=== PATIENT | male | born 1955 | race Caucasian/White ===

== ENCOUNTER → 2021-11-01 13:23 | Outpatient (CLI) | payer MEDICARE, BC, SELFPAY ==
[2021-11-01 14:06] LABS: COVID19 -Nasal RAPID Negative (Negative)
== END ==
PROVIDERS: Family Provider Student in an Organized Health Care Education/Training Program; PCP Student in an Organized Health Care Education/Training Program; Visit Provider Family Medicine Sleep Medicine
DX: Z20.822 Contact with and (suspected) exposure to COVID-19 (principal)
CPT/HCPCS: 87635; C9803

== ENCOUNTER 2021-11-03 06:22 | Day surgery (SDC) | payer MEDICARE, BC, SELFPAY ==
[2021-11-01 11:40] VITALS: BMI 25.4
[2021-11-03] VITALS (13 sets, daily range): BP systolic 109–164; BP diastolic 49–82; PULSE 54–83; RESP 11–18; TEMP 35.5–37.2; O2SAT 92–97; BMI 25.4; BMI 23.6
[2021-11-03] MEDS: ANTIHEMOPHILIC FACTOR/VWF 600 UNIT VIAL 3750 UNIT IV (07:24)
--- NOTE | 2021-11-03 07:30 | PM.HP.1 ---
History of Present Illness History of Present Illness Date Patient Seen: 11/03/21 Time Patient Seen: 07:15 Chief complaint: LEFT ELBOW Narrative: 65-year-old gentleman with arthritic changes to the left elbow resulting in stiffness and pain with range of motion. 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) HLD (hyperlipidemia) Infectious viral hepatitis Surgical History H/O left wrist surgery History of ankle surgery History of ankle surgery History of arthroplasty of left knee (2015) History of arthroplasty of right knee (2014) History of cataract extraction History of surgery (09/2016) Hx of arthroscopy of left knee Hx of repair of right rotator cuff Family & Social History Social History: household members spouse Prior Living Arrangements House Safety & Behavioral: Feels Safe in Current Yes Environment Been Physically Hurt or No Threatened By a Person Suicidal Ideation Description None Suicide Plan Description No Plan Tobacco & Substance use: Smoking Status Former smoker alcohol intake current alcohol intake frequency other Substance Use Type does not use Meds Home Medications and Allergies Home Medications Medication Instructions Recorded Confirmed Type acetaminophen 500 mg tablet 500 mg PO Q4HP PRN #0 03/21/17 11/03/21 History (Tylenol Extra Strength) oxycodone 10 mg tablet 10 mg PO BEDTIME #0 03/28/17 11/03/21 History sildenafil (pulm.hypertension) 20 20 mg PO DAILY PRN #0 03/28/17 11/03/21 History mg tablet amlodipine 5 mg tablet (Norvasc) 5 mg PO DAILY 11/01/21 11/03/21 History atorvastatin 40 mg tablet 40 mg PO DAILY 11/01/21 11/03/21 History spironolactone 25 mg tablet 25 mg PO DAILY 11/01/21 11/03/21 History Allergies Allergy/AdvReac Type Severity Reaction Status Date / Time enalapril [ENALAPRIL] AdvReac Severe UVULA Verified 11/03/21 06:59 SWELLING, SORE THROAT lisinopril [LISINOPRIL] AdvReac Intermediate IRRITATION, Verified 11/03/21 06:59 POSSIBLE SWELLING OF UVULA (ADVERSE PER MD) NSAIDS (Non-Steroidal AdvReac Unknown CLOTTING Verified 11/03/21 06:59 Anti-Inflamma FACTOR [NSAIDS (NON-STEROIDAL DISORDER ANTI-INFLAMMA] ALL/ANY BLOOD THINNERS Allergy Severe PT HAS VON Uncoded 11/03/21 06:59 [facility] OPIOIDS AdvReac Intermediate NAUSEA Uncoded 11/03/21 06:59 Exam Vital Signs (past 8 hours): - 11/03/21 07:02 Temperature 97.2 F L Pulse Rate 54 L Respiratory Rate 15 Blood Pressure 143/77 H Pulse Oximetry 97 Oxygen Delivery Method Room Air Narrative Exam Narrative: Patient with decreased range of motion to the left elbow. Patient has 95? of elbow flexion but is lacking the last 35? of full extension. Relatively normal supination and pronation. No sign of any elbow instability. Pain and crepitus with range of motion. Radial, ulnar, and medial nerve intact both motor and sensory function. Assessment & Plan Assessment & Plan narrative: 65-year-old gentleman with hemorrhagic arthritic changes involve left elbow. Due to these issues, patient is interested in an arthroscopic procedure to address the arthritis remove any loose bodies and see if we can improve his overall range of motion. The risk, benefits, alternatives, possible complications, operative course, and postop outcomes were discussed. Complications including but not limiting to bleeding, infection, fracture, nerve injury, continued pain postoperatively or instability postoperatively were discussed in detail. Medical complications including but not limited to deep venous thrombosis event, anesthesia complications with excessive bleeding, vascular events or cardiac events and other possible complications were discussed in detail. Need for postoperative rehabilitation and anticipated hospital stay and clinical course were discussed in detail. Patient acknowledges understanding and elects to proceed with surgery. Time Spent With Patient Critical Care time: I spent a total of [] minutes of critical care time on this patient's care today; this time is exclusive of procedural time.
--- NOTE | 2021-11-03 07:33 | PM.PREOP ---
Pre-operative Note COVID-19 COVID-19 status: Negative Interval Note History & Physical reviewed/Exam performed by Physician: Yes Changes to H&P: No
[2021-11-03] MEDS: LACTATED RINGERS 1,000 ML 84 ML IV (07:49)
[2021-11-03] MEDS: CEFAZOLIN 2 GM/20 ML SYRINGE IV ×2 (08:00→15:11)
--- NOTE | 2021-11-03 08:31 | SUR.OPER ---
Lateral on a dwan bag, head on pillow, gel axillary roll in place, bottom leg bent with gel pad under knee to foot, upper leg straight and supported with pillows. Upper arm supported by arm blood. Safety belt at hip, tape over blanket lower legs.
[2021-11-03] MEDS: BUPIVACAINE 0.5% (PF) 30 ML, EPINEPHrine 0.15 MG INJ (08:39)
[2021-11-03] MEDS: fentaNYL 100 MCG/2 ML INJ IV ×2 (09:30→09:36)
--- NOTE | 2021-11-03 09:35 | P.OP_ITS ---
Operative Date/Time/Diagnoses Date of procedure: 11/03/21 Time of procedure: 08:00 Pre-op diagnosis: Left elbow hemorrhagic arthritis Post-op diagnosis: same Procedure & Clinicians Procedure: Left elbow arthroscopic extensive debridement with capsular release as well as removal of loose bodies. 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 Surgeon: Kian Pickard Level Vial Sealer: Roxy Moise Anesthesia Type: General Operative Notes Findings: Significant arthritic changes to the elbow joint both anterior and posterior. Areas of full-thickness cartilage loss. Quite a bit of synovitis both anterior and posterior. Signs of hemorrhagic arthritic changes throughout the elbow. Multiple loose bodies both anterior and posterior. Closure Type: primary Estimated Blood Loss (mL): 5 Procedure in detail: On date of service, patient is met in the holding area where his operative site was signed witnessed by the OR staff. Surgeries once again discussed with the patient in remaining questions or concerns he had were answered fully. Patient was taken back to the operating theater placed on the operating table in a supine position. Great care was taken to ensure that all bony prominences were appropriately padded. Well-padded tourniquet was placed up along the upper extremity. Time-out was performed verifying patient's name procedure and operative site. Patient was then placed in the lateral position and axillary roll was placed. The left arm was prepped and draped in the normal sterile fashion. Esmarch was used to exsanguinate the limb and the tourniquet was turned up to 250 mmHg. Patient's bony anatomy was marked out. Marking pen was used to dry out to the olecranon the radial head the medial lateral epicondyle in the course of the ulnar nerve. Anterior medial and lateral portal sites were established as well as posterior portal sites. Saline was injected into the elbow joint distending the joint. We were able to actually aspirate quite a bit of bloody type fluid from the joint due to his bleeding disorder. Fifteen blade was used to incise through skin only for the medial lateral anterior portals. A blunt hemostat was used to dissect down and enter into the elbow joint. Camera was placed laterally a shaver was placed medially. At this point we were able to do an extensive debridement removing the arthritic changes and loose bodies as well as the significant amount of synovitis to the anterior aspect of the shoulder. Th is allowed us to improve our overall visualization given us good visualization of the coracoid process the radial head as well as the distal humerus. Using a shaver an extensive capsular release was performed allowing us to improve the overall range of motion. Camera was then placed medially shaver was placed laterally and this was continued again to the anterior aspect of the elbow. Once we felt we had it extensively debrided the elbow anteriorly we turned our attention posteriorly. A direct posterior portal as well as a posterior lateral portal were established in the same fashion. Fifteen blade to incise the skin only blunt hemostat to enter in to the posterior aspect of the elbow joint. Camera was placed posterior laterally and the shaver was placed directly posteriorly allowing us to debride and remove any degenerative tissue and synovitis in the olecranon fossa. Were also able to clean out the lateral gutter. Shaver was used to extensively debride the posterior aspect of the elbow as well as remove any loose bodies. Once we felt like we had adequate debridement the elbow was taken through range of motion. Preoperatively, patient had about 90-95 degrees of flexion was lacking the last 35-40 degrees of extension. Postoperatively, patient had full flexion of the elbow and was lacking the last 5? of extension. We were able to bring him back to almost full range of motion of the elbow without any signs of any stiffness or contractures. No sign of any mechanical symptoms or locking or catching. Patient also had full supination and pronation. Portal sites were closed with nylon. Patient's elbow was cleaned, dried, and dressed. Patient was extubated and taken to the PACU in stable condition. Patient was seen in recovery after surgery and a neurovascular check was performed. Patient had normal function of his radial ulnar and median nerve. Full range of motion of his wrist and fingers. No sign of any sensory changes distally. Patient also had palpable radial pulse and brisk cap refill to the fingers. Complications: none Post-operative Condition: stable Disposition: observation Plan for aftercare: Patient is being admitted in order for him to receive his Humate-P medication to treat his von Willebrand's disease.
[2021-11-03] MEDS: OXYCODONE/ACETAMINOPHEN 5/325 TABLET 1 TAB PO (09:38)
[2021-11-03] MEDS: ONDANSETRON 4 MG/2 ML INJ IV (09:42)
[2021-11-03] MEDS: HYDROMORPHONE 2 MG INJ IV (10:07)
[2021-11-03] MEDS: HYDROCODONE/ACET 5/325 TABLET 2 TAB PO ×3 (11:13→18:14)
[2021-11-03] MEDS: LACTATED RINGERS 1,000 ML 125 ML IV (11:32)
--- NOTE | 2021-11-03 12:50 | PT.IIE ---
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 no steps to enter 12 steps R rail to 2nd level bedroom Home Environment Standard Height Toilet,High Toilet,Walk in Shower Home Equipment Hand Held Shower Employment Status Retired M2 PT-IP Current Condition Start: 11/03/21 13:41 Freq: NEEDED Status: Active Protocol: Document 11/03/21 12:50 AB (Rec: 11/03/21 14:02 AB [email or web address]) Physical Therapy Current Condition Current Condition Evaluation Date 11/03/21 Treatment Diagnosis s/p L elbow arthroscopic debridement w/ capsular release; diff in walking Onset Date 11/03/21 M3 PT-IP Subjective Start: 11/03/21 13:41 Freq: NEEDED Status: Active Protocol: Document 11/03/21 12:50 AB (Rec: 11/03/21 14:02 AB [email or web address]) Subjective Physical Therapy Visit Type Type Initial Evaluation Visit Start Time 12:50 Visit Stop Time 13:30 Total Visit Minutes 40 Number of STUDENT SERVICES REP Visits 0 Physical Therapy Visit Comments Patient Comments agreeable to do PT Therapy Pain Assessment Pain When Pain Assessed At Rest Pain Present Pain Present Pain Reported Location left elbow Intensity 3 Scale Used Numeric (0 - 10) M4 PT-IP Mobility and Gait Start: 11/03/21 13:41 Freq: NEEDED Status: Active Protocol: Document 11/03/21 12:50 AB (Rec: 11/03/21 14:02 AB [email or web address]) PT-Bed Mobility Assessment Supine to Sit Supine to Sit Independent Sit to Supine Sit to Supine Independent PT-Transfer Assessment Sit to and From Stand Sit to and from Stand Independent Equipment Transfer Assistive Device None,Gait Belt Orthotic/Prosthetic Devices or Brace: Yes Comments Mobility Comments pt educated on elbow precautions and ROM exercises and bed positioning for edema control and icing. completed bed mobility and sit to stand independent. able to ambulate without AD independent ~ 225 ft and completed up/down stairs using R rail ascending mod I. pt presents with antalgic gait due to R knee flexion contracture and tiptoes on his R toes during standing and ambulation. pt stated that he had TKA back in 2017 and had PT and stretching but was not able to achieve normal range. pt able to manage despite limitation and with no LOB during ambulation. pt ambulated back to his room and went back to bed. positioned LUE. pt understood positioning. call light and table placed within reach. Gait Assessment Gait Gait Assistance Required: Independent Distance (Feet) 225 Able to Maintain Weight Bearing Status Yes During Gait Assistive Devices Orthotic/Prosthetic Devices or Brace: Yes Gait Deviations General Gait Pattern Antalgic Factors Limiting Gait Function Factors Limiting Gait Function Decreased Activity Tolerance, Decreased Sensation,Decreased Strength,Limited Range of Motion,Pain,Poor Balance Stair Climbing Assessment Evaluation Level of Assist On Stairs Independent Devices Stair Climbing Assistive Devices Right Railing Technique/Endurance Stair Climbing Direction Ascend and Descend Stair Climbing Technique Step Over Step Number of Steps Climbed 3 Query Text: Stair Climbing Set # Repetitions (reps) 3 PT-Balance Assessment Sitting Balance and Reactions Static Sitting Balance Ability Normal Dynamic Sitting Balance Ability Normal Standing Balance and Reactions Static Standing Balance Ability Normal Dynamic Standing Balance Ability Normal Device Used without AD M5 PT-IP Objective Assessments Start: 11/03/21 13:41 Freq: NEEDED Status: Active Protocol: Document 11/03/21 12:50 AB (Rec: 11/03/21 14:02 AB [email or web address]) Orientation Orientation/Cognition Level of Alertness Alert Orientation Name,Age,Birthday,Month,Date, Year,Day of Week,Place, Situation Language Function Ability No Deficits Noted Safety Awareness Understands Safety Issues Memory Description No Deficits Noted Gross Range of Motion Upper Extremity ROM Impairments L elbow in ~ 30 deg flexion with tightness in extension but also has kelsea wrap and dressing on affecting movement and range Lower Extremity ROM Impairments R knee flexion: PROM 90 deg extension with ~ 30 less to 0 Strength Upper Extremity Strength Hand decrease tobacco conditioner strength due to numbness Lower Extremity Strength Assessment Within Functional Limits Comments Strength Comments pt still has numbness on L hand affecting movement/ strength Sensation Assessment Sensation Gross Sensation Left UE Impaired Sensation Description Numbness Muscle Tone Muscle Tone WNL Yes M6 PT-IP Treatment Start: 11/03/21 13:41 Freq: NEEDED Status: Active Protocol: Document 11/03/21 12:50 AB (Rec: 11/03/21 14:02 AB [id number]) Physical Therapy Treatment Education Education Provided Precautions,Weight Bearing Status,Safety M7 PT-IP Assessment and Plan Start: 11/03/21 13:41 Freq: NEEDED Status: Active Protocol: Document 11/03/21 12:50 AB (Rec: 11/03/21 14:02 AB [email or web address]) PT Summary Assessment and Plan Potential Rehabilitation Potential Good Status of Condition at Evaluation Stable Summary Impairments Pain,ROM,Strength,Balance, Coordination,Sensation,Tone, Cognition,Bed Mobility, Transfers,Gait,Activity Tolerance Assessment Summary pt is independent with mobility without AD. educated on elbow precautions, ROM, icing and weight bearing. pt understood. no further PT intervention indicated at this time. pt plans to go home and spouse will assist pt at home. Frequency of Treatment Frequency Of Treatment Discharge Treatment Plan Physical Therapy Treatment Plan Therapeutic Exercise,Post Op Education,Discharge Planning Recommendations To Nursing Amount of Assist Needed Standby Assistance Discharge Recommendations PT Discharge Recommendations Home,Outpatient PT Transportation Needs at Discharge Private Vehicle
--- NOTE | 2021-11-03 16:00 | DI.RAD.S_ITS ---
PROCEDURE: XR CHEST FOR PICC 1V INDICATIONS: verify picc placement COMPARISON: [facility], , CHEST FOR PICC PLACEMENT, 04/05/2017, 15:18. FINDINGS: Right upper extremity PICC terminates in the distal SVC just above the level of the cavoatrial junction. IMPRESSION: Right upper extremity PICC terminates in the distal SVC just above the level of the cavoatrial junction. Dictated by: Alex Howell M.D. on 11/03/2021 at 16:33 Approved by: Alex Howell M.D. on 11/03/2021 at 16:33
[2021-11-03] MEDS: ANTIHEMOPHILIC FACTOR/VWF 600 UNIT VIAL 2650 UNIT IV (19:54)
== END 2021-11-03 20:55 | disposition home or self-care (01) ==
LOC: AC 18:02 → OR 11-04 09:14
PROVIDERS: Family Provider Student in an Organized Health Care Education/Training Program; PCP Student in an Organized Health Care Education/Training Program; Referring Provider Orthopaedic Surgery; Visit Provider Orthopaedic Surgery
PROC: (CPT 29830; principal; 2021-11-03 07:45)
DX: M19.022 Primary osteoarthritis, left elbow (principal); M36.2 Hemophilic arthropathy; M65.822 Other synovitis and tenosynovitis, left upper arm; Z98.890 Other specified postprocedural states; M24.022 Loose body in left elbow
CPT/HCPCS: 29838; 29834; 97161; 97530; J0171; J0690; J1100; J1170; J2250; J2405; J2704; J3010; J7187

== ENCOUNTER 2023-09-27 09:28 | Day surgery (SDC) | payer MEDICARE, SELFPAY ==
[2021-11-03 11:06] VITALS: BMI 23.6
[2023-09-13 12:31] VITALS: BMI 24.3
[2023-09-27] VITALS (14 sets, daily range): BP systolic 121–162; BP diastolic 65–92; PULSE 67–96; RESP 11–18; TEMP 36.2–37.3; O2SAT 92–97; BMI 24.3
--- NOTE | 2023-09-27 10:07 | PM.PREOP ---
Pre-operative Note Interval Note History & Physical reviewed/Exam performed by Physician: Yes Changes to H&P: No
[2023-09-27] MEDS: ANTIHEMOPHILIC FACTOR/VWF 600 UNIT VIAL 3750 UNIT IV (10:19)
[2023-09-27 10:34] LABS: Add Manual Diff / Slide Review NO; Basophils Absolute Auto 0 /uL (0-100); Basophils Percent Auto 0.7 % (0-2); Eosinophils Absolute Auto 100 /uL (0-450); Eosinophils Percent Auto 1.4 % (2-4); Hematocrit 40.8 % (41-53); Hemoglobin 13.7 g/dL (13.5-17.5); Lymphocytes Absolute Auto 1400 /uL (1100-4500); Lymphocytes Percent Auto 27.4 % (25-40); Mean Corpuscular HGB Conc 33.5 % (30-36); Mean Corpuscular Hemoglobin 28.4 PG (26-34); Mean Corpuscular Volume 84.7 fL (80-100); Monocytes Absolute Auto 600 /uL (0-900); Monocytes Percent Auto 11.1 % (3-14); Neutrophils Absolute Auto 3100 /uL (1500-7000); Neutrophils Percent Auto 59.4 % (50-75); Platelet Count 161 X10^3/uL (150-400); Red Blood Cell Count 4.82 X10^6/uL (4.5-5.9); Red Cell Distribution Width 14.2 % (11.6-14.8); White Blood Cell Count 5.3 X10^3/uL (4.5-11.0)
[2023-09-27] MEDS: SODIUM CHLORIDE 0.9% 1,000 ML 100 ML IV (10:35)
[2023-09-27] MEDS: CEFAZOLIN 2 GM/100 ML PREMIX 100 ML IV ×2 (11:15→18:11)
--- NOTE | 2023-09-27 11:30 | SUR.OPER ---
Lateral on padded OR bed with dawn bag positioner, head on pillow, gel axillary roll in place, bottom leg bent with gel pad under knee to foot, upper leg straight and supported with pillows. Operative arm secured in shoulder positioning suspension device. non-operative arm secured on padded arm board. Safety belt at hip, tape over blanket securing lower legs.
[2023-09-27] MEDS: BUPIVACAINE 0.5% (PF) 30 ML, EPINEPHrine 0.15 MG INJ (11:38)
--- NOTE | 2023-09-27 12:31 | P.OP_ITS ---
Operative Date/Time/Diagnoses Date of procedure: 09/27/23 Time of procedure: 11:30 Pre-op diagnosis: Left elbow hemophilic arthritis Post-op diagnosis: same Procedure & Clinicians Procedure: Left elbow arthroscopic extensive debridement with capsular release and loose body removal, extensive synovectomy Same procedure as scheduled: Yes Indications: Hemophilic arthritis with loose bodies in the left elbow Surgeon: Kian Pickard Clarifying Plant Operator: Mars Carmen Anesthesia Type: General Operative Notes Findings: Significant arthritic changes throughout the elbow in both the anterior and posterior aspects. Areas of full-thickness cartilage loss. Multiple loose bodies in the anterior and posterior aspect of the elbow. Significant synovitis. Closure Type: primary Estimated Blood Loss (mL): 5 Tourniquet time (min): 60 Procedure in detail: On date of service, patient was met in the holding area where his operative site was signed and witnessed by the OR staff. Surgeries once again discussed with the patient in remaining questions or concerns he had were answered fully. Patient was taken back to the operating theater and placed on the operating table in a supine position. Great care was taken to ensure that all bony prominences were appropriately padded. Patient was then placed in the lateral position using a beanbag. Axillary roll was placed. The right arm was placed into the right arm blood with the elbow bent at 90?. Time-out was previously performed verifying patient's name, procedure, and operative site. Right arm was prepped and draped in the normal sterile fashion. Esmarch was used to exsanguinate the limb and the tourniquet was turned up to 250 mm of mercury. Patient's bony anatomy and portal sites were drawn out previously. Course of the ulnar nerve was also drawn out so it was always visible throughout the entire case. Fifteen blade was used to incise through skin only for the anterior ulnar and radial portal. Hemostat was used to bluntly dissect down into the elbow joint. Camera was placed radially and the shaver was placed ulnarly and extensive debridement of mainly the radial aspect of the elbow joint was performed. Patient had a few loose bodies some of the rather large. So grasper was used to remove some of the larger loose bodies. There was also quite a bit of synovitis in the anterior aspect of the elbow joint. We also debrided some of the thickened capsular tissue to try to help with overall range of motion. Great care was taken to ensure just the capsular tissue was removed and there was no damage to the surrounding structures. Patient as mentioned above had significant arthritic changes due to his hemophilic arthritis as well as quite a bit of synovitis. Next the camera and shaver was switched placed in the camera ulnarly and the shaver radially allowing us to debride the other anterior half of the elbow joint. Large loose body coming off the distal humerus which was removed using a grasper. And continues debridement was performed of the surrounding capsular tissue. Once we felt that we had removed all loose bodies cleaned up the synovitis and did a good capsular release we turned our attention posteriorly. Two incisions were made a posterior incision and a posterior radial incision. Shaver and camera replaced into these portals and a debridement of the olecranon fossa was performed. Patient had a very large loose body in the radial gutter which was broken up into multiple pieces and then removed. No loose bodies in the ulnar gutter. Shaver was used to debride out all the synovitis and scarring around the olecranon fossa to improve overall range of motion. Elbow was taken through range of motion and there was improvement in extension as well as flexion.. Patient had full supination and pronation as well. Portal sites were closed with nylon. Elbow was cleaned, dried, and dressed. Marcaine was injected into the elbow joint as well as around the portal sites. Patient was extubated and taken to the PACU in stable condition. Postoperatively patient will be in a sling just for comfort. There is no restrictions to range of motion. Will limit lifting for about 2 weeks. Complications: none Post-operative Condition: stable Disposition: Acute Care Plan for aftercare: Patient will be held overnight so he can get his 2nd Humate P infusion. Patient can be discharged home after that.
[2023-09-27] MEDS: OXYCODONE IR 5 MG TABLET PO (13:13)
[2023-09-27] MEDS: hydrOXYzine 50 MG/ML INJ 25 MG IM (13:17)
--- NOTE | 2023-09-27 13:31 | SUR.PHASEI ---
Report called to Lynne Abraham.
[2023-09-27] MEDS: OXYCODONE IR 10 MG TABLET PO ×2 (14:06→23:48)
[2023-09-27] MEDS: LACTATED RINGERS 1,000 ML 100 ML IV (14:46)
[2023-09-27] MEDS: DOCUSATE 100 MG CAPSULE PO (21:15)
[2023-09-27] MEDS: ANTIHEMOPHILIC FACTOR/VWF 600 UNIT VIAL 2650 UNIT IV (21:15)
[2023-09-27] MEDS: SENNOSIDES 8.6 MG TABLET 17.2 MG PO (21:15)
[2023-09-28 00:03] VITALS: BP 130/69; PULSE 77; RESP 17; TEMP 36.4; O2SAT 96
[2023-09-28] MEDS: CEFAZOLIN 2 GM/100 ML PREMIX 100 ML IV (03:36)
[2023-09-28 04:56] VITALS: BP 147/83; PULSE 74; RESP 16; TEMP 36.3; O2SAT 95
[2023-09-28 05:01] LABS: Hematocrit 38.6 % (41-53); Hemoglobin 13.1 g/dL (13.5-17.5); Mean Corpuscular Hemoglobin 28.8 PG (26-34); Mean Corpuscular Volume 84.7 fL (80-100); Platelet Count 176 X10^3/uL (150-400); Red Blood Cell Count 4.56 X10^6/uL (4.5-5.9); Red Cell Distribution Width 14.2 % (11.6-14.8)
--- NOTE | 2023-09-28 06:37 | PM.DS.1 ---
History of Present Illness History of Present Illness Date Patient Seen: 09/28/23 Time Patient Seen: 06:37 Chief complaint: Left Elbow 09/26 Narrative: Operative Date/Time/Diagnoses Date of procedure: 09/27/23 Time of procedure: 11:30 Pre-op diagnosis: Left elbow hemophilic arthritis Post-op diagnosis: same Procedure & Clinicians Procedure: Left elbow arthroscopic extensive debridement with capsular release and loose body removal, extensive synovectomy Same procedure as scheduled: Yes Indications: Hemophilic arthritis with loose bodies in the left elbow Surgeon: Kian Pickard Cone Classifier Tender: Mars Carmen Anesthesia Type: General Operative Notes Findings: Significant arthritic changes throughout the elbow in both the anterior and posterior aspects. Areas of full-thickness cartilage loss. Multiple loose bodies in the anterior and posterior aspect of the elbow. Significant synovitis. Closure Type: primary Estimated Blood Loss (mL): 5 Tourniquet time (min): 60 Discharge Providers Provider Discharge Date: 09/28/23 Primary care physician: Rosita Lino DO Consults: 09/27/23 12:26 Consult to Discharge Planning Routine Comment: Consult to Physical Therapy Evaluate & Treat Comment: Physician Instructions: Evaluate and Treat Discharge provider: Roxy Moise PA-C Summary Hospital Course Discharge Diagnosis: Left elbow hemophilic arthritis, s/p Left elbow arthroscopic extensive debridement with capsular release and loose body removal, extensive synovectomy von Willebrand disease type 3 Hospital Course: Thad's hospital course was remarkable only for the need for perioperative dosing of Humate P d/t VWD. On the morning of POD# 1, he was feeling well and wanted to go home, but his PICC line wasn't placed yet. Trough labs for WACBD were requested by his hematologis; unsure if these had been drawn yet. Pt unsure of post-op Humate dosing schedule, but does have these instructions at home. Also unsure of activity restrictions. Otherwise, doing well; eating and voiding without difficulty, pain well-controlled. Exam Vital Signs (past 8 hours): - 09/28/23 00:03 09/28/23 04:56 Temperature 97.6 F 97.3 F L Pulse Rate 77 74 Respiratory Rate 17 16 Blood Pressure 130/69 147/83 H Pulse Oximetry 96 95 Oxygen Delivery Method Room Air Oxygen Flow Rate 0 Narrative Exam Narrative: 5/5 java grails developer strength, biceps, triceps. Soft dressing CDI. Sensation to touch intact throughout LUE. Objective Labs 09/28/23 04:25 Labs: Laboratory Results - last 24 hr 09/27/23 09/28/23 10:10 04:25 WBC 5.3 9.0 D RBC 4.82 4.56 Hgb 13.7 13.1 L Hct 40.8 L 38.6 L MCV 84.7 84.7 MCH 28.4 28.8 MCHC 33.5 34.0 RDW 14.2 14.2 Plt Count 161 176 Neut % (Auto) 59.4 Lymph % (Auto) 27.4 Orange % (Auto) 11.1 Eos % (Auto) 1.4 L Baso % (Auto) 0.7 Neut # (Auto) 3100 Lymph # (Auto) 1400 Orange # (Auto) 600 Eos # (Auto) 100 Baso # (Auto) 0 Blood Type A Positive Antibody Screen Negative [facility] Medical History (Updated 09/13/23 @ 13:15 by Gregoria Molina RN) History of COVID-19 (2022) Anesthesia complication Infectious viral hepatitis HLD (hyperlipidemia) 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) Arthritis Headache, migraine Surgical History (Updated 09/13/23 @ 12:37 by Gregoria Molina RN) Hx of elbow surgery (11/03/21) History of surgery (09/2016) History of arthroplasty of left knee (2015) History of arthroplasty of right knee (2014) History of cataract extraction History of ankle surgery H/O left wrist surgery Hx of repair of right rotator cuff Hx of arthroscopy of left knee History of ankle surgery Social History household members: spouse Smoking Status: Former smoker alcohol intake: current Discharge Assessment & Plan Assessment and Plan Assessment: 1) Left elbow arthroscopic extensive debridement with capsular release and loose body removal, extensive synovectomy 2) VWD Plan of Treatment: 1) Limit lifting w/ LUE to 5 pounds for the next 2 weeks. No restrictions to ROM. May shower. 2) PICC line for Humate P infusion. STAT labs per WACBD if these have not been drawn yet. Next Humate dose is 2650 @ 1000; it appears as though this has been ordered. 3) D/C home after PICC and infusion; f/u in office in 2 weeks as scheduled. Discharge Plan Discharge Plan Patient Disposition: Home Provider Discharge Comment: CONTINUE HUMATE-P INFUSIONS PER DR TERAN'S INSTRUCTIONS Discharge orders & Medications Discharge Orders: Discharge (Order); Ordered 09/28/23 Ordered By: Roxy Moise Prescriptions: New oxycodone 5 mg Tablet 5 mg PO Q6HR PRN (Reason: pain (scale score 7-10)) Qty: 14 0RF Continued acetaminophen [Tylenol Extra Strength] 500 MG tablet 500 mg PO Q4HP PRN (Reason: Pain) Qty: 0 oxycodone 10 MG tablet 10 mg PO BEDTIME PRN (Reason: Pain) Qty: 0 sildenafil (pulm.hypertension) 20 MG tablet 20 mg PO DAILY PRN (Reason: Sexual Activity) Qty: 0 atorvastatin 40 mg Tablet 40 mg PO DAILY spironolactone 25 mg Tablet 25 mg PO DAILY amlodipine [Norvasc] 5 MG tablet 5 mg PO DAILY celecoxib [Celebrex] 200 mg Capsule 200 mg PO DAILY PRN (Reason: Pain) Follow up/Referrals: Kian Pickard MD [Physician] - 10/09/23 1:00 pm (Follow up at [facility] in [place] Rosita Lino DO [Primary Care Provider] - Diet/Activity/Treatments Diet: Diet as Tolerated Activity: No lifting/pushing/pulling more than 5# with left hand. No restrictions to range of motion at elbow. Cold/Heat Therapy: Ice to elbow as needed for pain. Skin/Wound/Dressing Care Report to your healthcare provider any signs of infection, such as:: chills, fever, night sweats, unusual drainage and unusual redness Dressing: May unwrap dressing and shower. Pat incisions dry afterwards. No bathing or otherwise soaking incisions. Do not apply any creams, lotions, or ointments to incisions. May keep incisions covered with clean, dry gauze or Band-aids. Visit Report/Discharge Packet Instructions: DI for Arthroscopy, DI for Prescription Opioid Use Stand Alone Forms: Patient Portal/API, Surgery Discharge Discharge Data Primary Care Provider: Rosita Lino Attending Provider: Kian Pickard Quality VTE Deep Vein Thrombosis/Pulmonary Embolism Present on Admission: No
[2023-09-28 07:00] VITALS: BP 133/60; PULSE 69; RESP 16; TEMP 36.2; O2SAT 98
[2023-09-28] MEDS: DOCUSATE 100 MG CAPSULE PO (08:21)
[2023-09-28] MEDS: ATORVASTATIN 20 MG TABLET 40 MG PO (08:21)
[2023-09-28] MEDS: AMLODIPINE 5 MG TABLET PO (08:21)
[2023-09-28] MEDS: SPIRONOLACTONE 25 MG TABLET PO (08:21)
[2023-09-28] MEDS: polyethylene glycoL 3350 17 GM POWD.PACK PO (08:21)
--- NOTE | 2023-09-28 08:31 | CM.DANOTE ---
Initial DCP Assessment Visit Note Reviewed EMR and team rounds for pt's medical status and updates. Met with pt at bedside to introduce self and role. Pt was found to be awake/oriented and sitting up in the recliner. He lives independently with his spouse in their own home in [place], spouse will transport him once he's had his PICC placed and is medically cleared for d/c. Payor: Anthony Colón Attending: Dr. Pickard Pt is a 67 year-old M post-op day 1 following his L-elbow arthroscopic extensive debridement w/capsular release and loose body removal surgery. This was his second debridement surgery following his original L-elbow arthroplasty done in 2021. He has a lengthy hx of L-hemophilic arthritis, conservative measures have not provided lasting relief. Pt will receive a PICC line this morning in order to d/c home with postoperative Humate P infusions for the next 2-weeks. He understands post-op f/u instructions and has a f/u appt. scheduled in 2-weeks with Ortho. DCP will continue to monitor, however he denies any d/c needs at this time. Discharge Planning/Care Management CM Discharge Assessment Start: 09/28/23 08:27 Freq: Status: Active Protocol: Document 09/28/23 08:27 DPL (Rec: 09/28/23 08:30 DPL [id number]) Discharge Planning Assessment Assigned Data Review Specialist SURESH Coats Advance Directives? Yes Advance Directives on File Yes History Provided By Patient,Medical Record Has Patient been admitted in last 30 No days? Prior Living Arrangements House Household Members spouse Type of transporation used prior to Drives own vehicle admit Independent with ADL's Yes Is patient alert and oriented? Yes Caregiver for Another No Comment N/A Comment No identified home d/c needs at this time. Barriers to Discharge No Discharge Plan Home Transportation Arrangement Spouse Referrals Initiated None needed Whiteboard Updated in Patient Room with Yes name and ext. # of Data Review Specialist Review Status In Process Please Provide Date Initial DC 09/28/23 Assessment Was Performed Pre-Anesthesia Assessment Start: 09/13/23 12:31 Freq: Status: Active Protocol: Document 09/13/23 12:31 CAB (Rec: 09/13/23 12:43 CAB [id number]) Pre-Anesthesia Assessment PAC Comment Pt will require Humate P infusion within 1 hour pre-op. Please call pharmacy and they will bring over. Pt will require second dose 12 hours later. Please see [facility] fax in surgery folder Preferred Name Yariel Patient Information Reviewed Via Phone Assessment Assessment Completed With Patient Primary Care Provider Rosita Lino Seen Specialist in Last 12 Months Yes Specialist Seen Rubber Stamp Assembler,Orthopedist,Other Comment [facility]/Dr. Antonio Clemente [phone] Primary Language Angolan Preferred Language Angolan Aviation Project Manager Required No Height 175.26 cm Weight 74.843 kg Body Mass Index (BMI) 24.3 Hearing Ability Normal Visual Assist Glasses Dentition Type Teeth, Natural Present Barriers to Learning None Hx Anesthesia Reactions Yes: PONV Hx Family Anesthesia Reaction No Hx Malignant Hyperthermia No Hx Blood Transfusions Yes: Childhood r/t bleeding disorder Hx Blood Transfusion Reaction Yes: x 1-allergic reaction of hives, throat closing, treated w/benadryl Anesthesia Review Requested Yes: Surgeon requested re: Von Willebrands Creative Specialist No alcohol intake current alcohol intake frequency holidays/special occasions only Smoking Status Former smoker Tobacco type cigarettes how long ago did patient quit smoking many! Substance Use Type does not use Pain Present Pain Reported Musculoskeletal Symptoms Joint Pain,Limited Range of Motion History of Falling (Recent or History of No ) Patient is completely paralyzed or No completely immobile Mental Status Oriented to own ability Is patient on oxygen? No Does patient have HARP/SOB No Hx Sleep Apnea No Currently Taking a Beta Jacqui No Can You Climb a Flight of Stairs Without Yes SOB Hx Chest Pain No Hx SOB No Hx Syncope or Dizziness No Anti-Coagulant Therapy No Has a Rubber Stamp Assembler Yes: Last visit 07/05/[address] Mckinnon Cardiac Testing No Hx Pacemaker/ICD No Pacemaker Rep Required? No Comment Cardiac records scanned and in surgery folder Diet Type At Home Regular,Vegetarian Dysphagia No Gastrointestinal Symptoms None Urinary Catheter Present No Hx Urinary Self Catheterization No Diabetes No Hx Drug Resistant Organism No Presence of External or Internal Medical Yes: Rt eye IOL, lt wrist Devices fusion, bilat knee/ankle Received a COVID vaccine? Yes Received all doses? Yes Marital Status Lives With spouse Current Living Arrangements House Support System Spouse Does the Patient Have Assistance After Yes Surgery Patient Discharge Plan Description Return Home Feels Safe in Current Environment Yes Been Physically Hurt or Threatened By a No Person in Current Environment Do you have thoughts of harming yourself None or others? Are you currently considering suicide? No Do you have a plan to hurt yourself or No Plan others? Do You Have Any Spiritual Beliefs That No May Affect Your HC Choices? Do You Have Any Cultural Practices That No May Affect Your HC Choices? Who Can We Speak to About Patient's Care Family, friends Identifying Code for Release of Patient Declines to issue Information Health Care Proxy/Next of Kin Leydi () Health Care Proxy Emergency Contact Name Leydi () Emergency Contact Advance Directives? Yes Advance Directives on File Yes Power of Breadman Yes Power of Breadman Name Leydi () Power of Breadman PAC Instructions Durable medical equipment, Medications to take/avoid,No ETOH/petroleum product on skin DOS,NPO,Post-op transportation,Sensory aids, Sturdy shoes/comfortable clothes,Do not bring valuables and remove jewelry
--- NOTE | 2023-09-28 09:00 | DI.RAD.S_ITS ---
PROCEDURE: XR CHEST 1V INDICATIONS: PICC placement TECHNIQUE: One view of the chest was acquired. COMPARISON: [facility], , XR CHEST FOR PICC 1V, 11/03/2021, 16:01. FINDINGS: Surgical changes and devices: Right sided PICC with the catheter tip at the cavoatrial junction. Lungs and pleura: Lungs are clear. No pleural effusions or pneumothorax. Mediastinum: Mediastinal contours appear unchanged. Heart size is within normal limits. Bones and chest wall: No suspicious bony lesions. Overlying soft tissues appear unremarkable. IMPRESSION: Right sided PICC with the catheter tip at the cavoatrial junction. Dictated by: Darrius Murcia M.D. on 09/28/2023 at 10:03 Approved by: Darrius Murcia M.D. on 09/28/2023 at 10:05
--- NOTE | 2023-09-28 09:40 | PT.IIE ---
Current Diagnoses Primary osteoarthritis, left elbow (09/27/23) Joint disorder, unspecified (09/27/23) Hemophilic arthropathy (09/27/23) Other specified postprocedural states (09/27/23) Surgery Performed Operation Date: 09/27/23 10:45 Actual Procedures p Elbow Arthroscopic extensive debridement & capsular release with loose body removal(Left) - Kian Pickard MD Surgical History (Last Updated 09/13/23 @ 12:37 by Gregoria Molina RN) H/O left wrist surgery History of ankle surgery History of ankle surgery History of arthroplasty of left knee (2015) History of arthroplasty of right knee (2014) History of cataract extraction History of surgery (09/2016) Hx of arthroscopy of left knee Hx of elbow surgery (11/03/21) Hx of repair of right rotator cuff Medical History (Last Updated 09/13/23 @ 13:15 by Gregoria Molina RN) Anesthesia complication Arthritis Headache, migraine History of COVID-19 (2022) 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 no steps to enter 20 steps R rail ascending to bedroom level Home Environment Standard Height Toilet,Walk in Shower Home Equipment Hand Held Shower M2 PT-IP Current Condition Start: 09/28/23 12:21 Freq: NEEDED Status: Active Protocol: Document 09/28/23 09:40 AB (Rec: 09/28/23 12:39 AB [id number]) Physical Therapy Current Condition Current Condition Evaluation Date 09/28/23 Treatment Diagnosis L elbow synovectomy; weakness Onset Date 09/27/23 M3 PT-IP Subjective Start: 09/28/23 12:21 Freq: NEEDED Status: Active Protocol: Document 09/28/23 09:40 AB (Rec: 09/28/23 12:39 AB [id number]) Subjective Physical Therapy Visit Type Type Initial Evaluation Visit Start Time 09:40 Visit Stop Time 10:05 Number of CHIP UNLOADER Visits 0 Physical Therapy Visit Comments Patient Comments agreeable to do PT Therapy Pain Assessment Pain When Pain Assessed At Rest Pain Present Pain Present Pain Reported Location Left Elbow Intensity 3 Scale Used Numeric (0 - 10) Pain Management Techniques Distraction,Modification of Treatment,Re-positioning, Timing of Activity with Medications M4 PT-IP Mobility and Gait Start: 09/28/23 12:21 Freq: NEEDED Status: Active Protocol: Document 09/28/23 09:40 AB (Rec: 09/28/23 12:39 AB [id number]) PT-Bed Mobility Assessment Supine to Sit Supine to Sit Independent Sit to Supine Sit to Supine Independent PT-Transfer Assessment Sit to and From Stand Sit to and from Stand Independent Equipment Transfer Assistive Device None Orthotic/Prosthetic Devices or Brace: No Comments Mobility Comments pt sitting on the chair and agreeable to do PT. obtained PLOF and home set up from pt. informed pt regarding lifting precautions. educated pt regarding HEP for elbow ROM. pt has outpt PT set up per pt. pt completed sit to stand from chair mod I and ambulated to EOB without AD mod I. demonstrated bed mobility mod I. pt agreed to do stairs and ambulated in the hallway without AD mod I ~ 250 ft. pt able to complete stair climbing holding on to R rail ascending for support mod I. pt ambulated back to his room without AD mod I. pt left in room sitting on the chair. Gait Assessment Gait Gait Assistance Required: Independent Distance (Feet) 250 Able to Maintain Weight Bearing Status Yes During Gait Assistive Devices Assistive Device None Orthotic/Prosthetic Devices or Brace: No Gait Deviations General Gait Pattern Antalgic Factors Limiting Gait Function Factors Limiting Gait Function Limited Range of Motion,Pain Stair Climbing Assessment Evaluation Level of Assist On Stairs Independent Devices Stair Climbing Assistive Devices Right Railing Technique/Endurance Stair Climbing Direction Ascend and Descend Stair Climbing Technique Step Over Step Number of Steps Climbed 3 Query Text: Stair Climbing Set # Repetitions (reps) 3 PT-Balance Assessment Sitting Balance and Reactions Static Sitting Balance Ability Normal Dynamic Sitting Balance Ability Normal Standing Balance and Reactions Static Standing Balance Ability Good Dynamic Standing Balance Ability Good Device Used without AD M5 PT-IP Objective Assessments Start: 09/28/23 12:21 Freq: NEEDED Status: Active Protocol: Document 09/28/23 09:40 AB (Rec: 09/28/23 12:39 AB [id number]) Orientation Orientation/Cognition Level of Alertness Alert Orientation Name,Age,Birthday,Date,Place, Situation Safety Awareness Understands Safety Issues Memory Description No Deficits Noted Gross Range of Motion Upper Extremity ROM Assessment Left Impaired Impairments L elbow extension ~ 20 deg less to 0 Lower Extremity ROM Assessment Within Functional Limits Strength Lower Extremity Strength Assessment Within Functional Limits Coordination Assessment Gross Coordination Gross Coordination WNL Sensation Assessment Sensation Gross Sensation WNL Muscle Tone Muscle Tone WNL Yes M6 PT-IP Treatment Start: 09/28/23 12:21 Freq: NEEDED Status: Active Protocol: Document 09/28/23 09:40 AB (Rec: 09/28/23 12:39 AB [id number]) Physical Therapy Treatment Exercises Exercises Elbow Flexion/Extension Education Education Provided Precautions,Weight Bearing Status,Safety M7 PT-IP Assessment and Plan Start: 09/28/23 12:21 Freq: NEEDED Status: Active Protocol: Document 09/28/23 09:40 AB (Rec: 09/28/23 12:39 AB [id number]) PT Summary Assessment and Plan Potential Rehabilitation Potential Good Status of Condition at Evaluation Stable Summary Impairments Pain,ROM,Strength Assessment Summary pt is a 67 y/o M s/p L elbow synovectomy. pt is independent with all mobilities and ambulation without AD. pt educated on precautions and lifting restrictions for L UE/elbow. HEP provided to pt and pt able to complete. no further PT intervention indicated at this time. pt may go home when medically stable. Frequency of Treatment Frequency Of Treatment Discharge Precautions Other Precautions LUE limited lifting/pushing/ pulling : no more than 5# Weight Bearing Status Allowed Weight Bearing Amount (enter % LUE limited lifting/pushing/ or #) (%) pulling : no more than 5# Recommendations To Nursing Amount of Assist Needed Independent Discharge Recommendations PT Discharge Recommendations Home Transportation Needs at Discharge Private Vehicle
[2023-09-28] MEDS: ANTIHEMOPHILIC FACTOR/VWF 600 UNIT VIAL 2650 UNIT IV (09:44)
--- NOTE | 2023-09-28 10:43 | PC.NURSE ---
Day shift: paperwork signed and all questions answered. Pt has all personal belongings. Continues to have good ROM. Spouse in room for teachings. PICC line remains in place on discharge. script sent electronic to Pt's pharmacy. Let unit at approx 1045. Spouse is driving him home to [place].
[2023-09-30 15:57] LABS: Factor VIII Activity, Clotting 95 % (56-140)
[2023-09-30 18:33] LABS: Von Willebrand Factor Antigen 140 % (50-200)
== END 2023-09-28 10:45 | disposition home or self-care (01) ==
LOC: OR 09:29 → AC 13:23
PROVIDERS: Physician Assistant; Student in an Organized Health Care Education/Training Program; Family Provider Student in an Organized Health Care Education/Training Program; PCP Family Medicine; Referring Provider Orthopaedic Surgery; Visit Provider Orthopaedic Surgery
PROC: (CPT 29830; principal; 2023-09-27 10:45)
DX: M19.022 Primary osteoarthritis, left elbow (principal); Z98.890 Other specified postprocedural states; M36.2 Hemophilic arthropathy; M25.9 Joint disorder, unspecified; M24.022 Loose body in left elbow; M65.9 Synovitis and tenosynovitis, unspecified
CPT/HCPCS: 29838; 29834; 36415; 36573; 71045; 85025; 85027; 85240; 85246; 86850; 86900; 86901; 97161; J0171; J0690; J1100; J2405; J2704; J3010; J3410; J7187

== ENCOUNTER → 2024-08-29 12:03 | Outpatient (CLI) | payer MEDICARE, SELFPAY ==
[2023-09-27 13:28] VITALS: BMI 24.3
[2024-08-29 12:54] LABS: Add Manual Diff / Slide Review NO; Basophils Absolute Auto 0 /uL (0-100); Basophils Percent Auto 0.4 % (0-2); Eosinophils Absolute Auto 100 /uL (0-450); Eosinophils Percent Auto 2.3 % (2-4); Hematocrit 46.3 % (41-53); Hemoglobin 15.5 g/dL (13.5-17.5); Lymphocytes Absolute Auto 1400 /uL (1100-4500); Lymphocytes Percent Auto 35.7 % (25-40); Mean Corpuscular HGB Conc 33.5 % (30-36); Mean Corpuscular Hemoglobin 29.4 PG (26-34); Mean Corpuscular Volume 87.8 fL (80-100); Monocytes Absolute Auto 400 /uL (0-900); Monocytes Percent Auto 9.6 % (3-14); Neutrophils Absolute Auto 2100 /uL (1500-7000); Platelet Count 152 X10^3/uL (150-400); Red Blood Cell Count 5.27 X10^6/uL (4.5-5.9); Red Cell Distribution Width 13.7 % (11.6-14.8)
[2024-08-29 13:04] LABS: Hemoglobin A1C% w Est Avg Glu 5.3 % (4.0-6.0)
[2024-08-29 13:06] LABS: Cholesterol 136 mg/dL (140-199); HDL Cholesterol 57 mg/dL (40-60); LDL Cholesterol Calculated 68 mg/dL (<100); Triglycerides 55 mg/dL (35-150)
== END ==
PROVIDERS: Family Provider Student in an Organized Health Care Education/Training Program; PCP Family Medicine; Referring Provider Family Medicine; Visit Provider Family Medicine
DX: I10 Essential (primary) hypertension (principal); R73.03 Prediabetes; E78.5 Hyperlipidemia, unspecified
CPT/HCPCS: 36415; 80061; 83036; 85025

== ENCOUNTER 2025-02-05 12:36 | Day surgery (SDC) | payer MEDICARE, SELFPAY ==
[2023-09-27 13:28] VITALS: BMI 24.3
--- NOTE | 2025-02-05 | PATH_ITS ---
[facility] Accession Number: [id number] No. of containers..02 Tissue . 01 Material submitted: . PART A: colon - TRANSVERSE POLYP PART B: colon - COLON, DESCENDING POLYP . 01 Diagnosis: A. TRANSVERSE COLON POLYP: Tubular adenoma. . B. DESCENDING COLON POLYP: Tubular adenoma. [facility] 02/10/2025 1142 Local . 01 Electronically signed: . Jonathan Rasmussen MD, PhD, Pathologist NPI- [id number] . 01 Gross description: . A. Received in formalin, labeled with two identifiers and transverse polyp, is a single boyd soft tissue fragment measuring 0.5 cm in greatest dimension. Submitted in cassette A1. B. Received in formalin, labeled with two identifiers and descending colon polyp, is a single boyd soft tissue fragment measuring 1.1 cm in greatest dimension. Submitted in cassette B1. ([id number]) /FRRoland 02/07/2025 1517 Local . 01 Pathologist provided ICD-10: D12.3, D12.4 . 01 CPT . 752034, 147599 Specimen Comment: A courtesy copy of this report has been sent to [phone] Performed at: [address] [address], [place], [place] [id number] MD Sarthak Watters MD Phone: [phone]
--- NOTE | 2025-02-05 13:05 | P.HP_ITS ---
History of Present Illness History of Present Illness Date Patient Seen: 02/05/25 Time Patient Seen: 13:05 Chief complaint: Screening Colonoscopy Narrative: Mando is a 69-year-old man who is due for a screening colonoscopy. His last was about 10 years ago. 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) Hx of elbow surgery (11/03/21) History of surgery (09/2016) History of arthroplasty of left knee (2015) History of arthroplasty of right knee (2014) History of cataract extraction History of ankle surgery H/O left wrist surgery Hx of repair of right rotator cuff Hx of arthroscopy of left knee History of ankle surgery Social History household members: spouse Smoking Status: Never smoker (celebratory cigar with a friend social ) alcohol intake: current (1-2 during celebrations (holiday, birthday) ) substance use type: does not use Meds Home Medications and Allergies Home Medications ?Medication ?Instructions ?Recorded ?Confirmed ?Type acetaminophen 500 mg tablet 500 mg PO Q4HP PRN Pain ## 0 03/21/17 09/10/24 History (Tylenol Extra Strength) celecoxib 200 mg capsule (Celebrex) 200 mg PO DAILY NV N Pain 09/13/23 09/10/24 History antihemophilic factor-vWF 1,000 ml IV 11/02/23 5 History unit-2,400 unit intravenous solution (Humate-P) sildenafil 100 mg tablet (Viagra) 100 mg PO DAILY PRN sexual 07/09/24 09/10/24 Rx activity #20 tabs sodium,potassium,mag sulfates 17.5 See Rx Instructions PO .COMPLEX 08/29/24 09/10/24 Rx gram-3.13 gram-1.6 gram oral soln #354 mL (Suprep Bowel Prep Kit) atorvastatin 20 mg tablet 20 mg PO DAILY #90 tabs 09/2309/10/24 Rx amlodipine 5 mg tablet (Norvasc) 5 mg PO DAILY #90 tab s 09/16/24 Rx spironolactone 25 mg tablet 25 mg PO DAILY #90 tabs Rx Allergies Allergy/AdvReac Type Severity Reaction Status Date / Time enalapril (ENALAPRIL) AdvReac Severe UVULA Verified 09/10/24 14:59 SWELLING, SORE THROAT lisinopril (LISINOPRIL) AdvReac Intermediate IRRITATION, Verified 09/10/24 14:59 POSSIBLE SWELLING OF UVULA (ADVERSE PER MD) NSAIDS (Non-Steroidal AdvReac Unknown CLOTTING Verified 09/10/24 14:59 Anti-Inflamma (NSAIDS FACTOR (NON-STEROIDAL ANTI-INFLAMMA) DISORDER ALL/ANY BLOOD THINNERS Allergy Severe PT HAS VON Uncoded 09/10/24 14:59 WILLEBRAND'S Exam Const General: No acute distress Assessment & Plan Assessment and plan (1) Colon cancer screening: Status: Acute Plan Colonoscopy Time-Based Coding :: [TOTAL MINUTES] spent with patient and on the chart (including review of chart, obtaining history, exam, reviewing outside data, placing orders, documenting exam and treatment plan, and counseling patient) on [DATE]. PROFEE Day Care Home Mother Document charge(s): No
[2025-02-05] MEDS: LACTATED RINGERS 1,000 ML 42 ML IV (13:20)
[2025-02-05 13:25] VITALS: BP 147/94; PULSE 79; RESP 16; TEMP 36.2; O2SAT 97
[2025-02-05 14:10] VITALS: BP 112/75; PULSE 58; RESP 19; TEMP 36.2; O2SAT 96
--- NOTE | 2025-02-05 14:10 | PM.OP.COLON ---
Operative Date/Time/Diagnoses Date of procedure: 02/05/25 Time of procedure: 14:10 Pre-op diagnosis: Colon cancer screening Post-op diagnosis: same Procedure & Clinicians Study performed: Colonoscopy Same procedure(s) as scheduled: Yes Surgeon: Rocky Arreola Anesthesia Type: MAC +/- Procedure Notes Procedure in detail: Surgeon: Rocky Arreola MD Anesthesia: Jean-Claude Rico.Rafat Procedure: The patient was brought to the endoscopy suite, placed in left lateral decubitus position. The patient was connected to monitoring devices. A time-out was performed. Sedation was administered. Once the patient was adequately sedated, a digital rectal exam was performed and was normal. The scope was then inserted and advanced to the cecum where the appendiceal orifice was identified and photographed. The scope was then slowly withdrawn over greater than 6 minutes. The mucosa was thoroughly inspected. There was a 5 mm polyp in the transverse colon removed with a cold snare followed by a hemostatic clip with good effect. There was a 5 mm polyp in the descending colon removed with a cold snare followed by two hemostatic clips with good effect. There was scattered sigmoid colon diverticulosis. The scope was retroflexed in the rectum. No other abnormalities were found. The scope was straightened and removed. The patient was awakened and brought to recovery. Scope withdrawal time: 13 minutes Sedation time: 15 minutes EBL: 5 mL Findings: 5 mm polyp in the transverse colon and 5 mm polyp in the descending colon, scattered sigmoid diverticulosis Post-procedure Disposition: PACU
[2025-02-05 14:16] VITALS: PULSE 58; RESP 25; O2SAT 97
[2025-02-05 14:21] VITALS: PULSE 52; RESP 25; TEMP 36.2; O2SAT 96
== END 2025-02-05 14:40 | disposition home or self-care (01) ==
PROVIDERS: PCP Family Medicine; Referring Provider Surgery; Visit Provider Surgery
PROC: 0DJD8ZZ Inspection of Lower Intestinal Tract, Via Natural or Artificial Opening Endoscopic (ICD-10-PCS; CPT 45378; principal; 2025-02-05 14:00)
DX: Z12.11 Encounter for screening for malignant neoplasm of colon (principal); K57.30 Diverticulosis of large intestine without perforation or abscess without bleeding; D12.3 Benign neoplasm of transverse colon; D12.4 Benign neoplasm of descending colon
CPT/HCPCS: 45385; J2704

== ENCOUNTER → 2025-06-16 14:02 | Outpatient (CLI) | payer MEDICARE, SELFPAY ==
[2023-09-27 13:28] VITALS: BMI 24.3
--- NOTE | 2025-06-16 14:03 | DI.CT.S_ITS ---
PROCEDURE: CT KIDNEY URETER BLADDER (KUB) INDICATIONS: Kidney stones TECHNIQUE: CT of the abdomen and pelvis was obtained without intravenous contrast. Coronal and sagittal reformats were performed. For radiation dose reduction, the following was used: automated exposure control, adjustment of mA and/or kV according to patient size. COMPARISON: None. FINDINGS: Image quality: Diagnostic. Lower Chest: No significant findings. ABDOMEN: Liver: No contour-deforming mass. Gallbladder: No radiopaque gallstones or wall thickening. Biliary ducts: No biliary dilation. Pancreas: No ductal dilation. Spleen: Size is within normal limits. Adrenal Glands: No adrenal nodules. Kidneys and Ureters: Non-obstructing 3 mm calculus in the left superior pole. No hydronephrosis. No contour-deforming mass. Stomach and Bowel: Normal colonic caliber, without significant wall thickening. Normal caliber appendix. Sigmoid diverticulosis without acute inflammation Peritoneum: No abnormal intraperitoneal fluid. No free air.. Ventral Wall: No significant hernia. Abdominal Nodes: No retroperitoneal or mesenteric adenopathy by size criteria. Vessels: Aorta and inferior vena cava are normal in size. Mild aorto bi iliac atherosclerotic calcifications. PELVIS: Pelvic Organs: Unremarkable. Bladder: Unremarkable. Pelvic Nodes: No enlarged lymph nodes. Miscellaneous: No inguinal hernias are seen. Bones: No aggressive osseous abnormality. IMPRESSION: Nonobstructing 3 mm left superior pole calculus. No hydroureteronephrosis. Colonic diverticulosis without CT evidence of acute diverticulitis. Approved by: Hue Aldridge M.D.,Ph.D. on 06/17/2025 at 21:09
== END ==
LOC: CT 14:02
PROVIDERS: PCP Family Medicine; Referring Provider Physician Assistant; Visit Provider Physician Assistant
DX: N20.0 Calculus of kidney (principal); K57.30 Diverticulosis of large intestine without perforation or abscess without bleeding
CPT/HCPCS: 74176